=== PATIENT | male | born 1990 | race Caucasian/White ===

== ENCOUNTER 2019-03-21 15:13 | Emergency (ER) | payer MEDICAID, OTHER ==
--- NOTE | 2019-03-21 15:43 | EDM.PDOC ---
ED HPI GENERAL MEDICAL PROBLEM - General Chief Complaint: General Stated Complaint: LIVER AND KIDNEY ISSUES Time Seen by Provider: 03/21/19 15:34 Source of Information: Reports: Patient History Limitations: Reports: No Limitations - History of Present Illness INITIAL COMMENTS - FREE TEXT/NARRATIVE: HISTORY AND PHYSICAL: History of present illness: Patient is a 28-year-old male who presents to the emergency room with his mother with concerns of jaundice and dark colored urine. Patient states he has a chronic alcohol user, states he has had "a bad month" which she has been drinking heavily. He states over the past one week he has noticed that his sclera and skin have a yellow hue to them. He also noticed that his urine is more dark in color. He states he is concerned he may have some "liver or kidney problems" but is currently asymptomatic. States if it hadn't been for the jaundice, he would not have presented to the ED today. Patient reports he has not seen a primary care provider in approximately 4 years. He denies any previous health history or diagnoses. Patient denies any fever, chills, headache, change in vision, syncope or near syncope. Denies any chest pain, back pain, shortness of breath or cough. Denies any abdominal pain, nausea, vomiting, diarrhea, constipation or dysuria. Has not noted any blood in urine or stool. Patient has been eating and drinking appropriately. Review of systems: As per history of present illness and below otherwise all systems reviewed and negative. Past medical history: As per history of present illness and as reviewed below otherwise noncontributory. Surgical history: As per history of present illness and as reviewed below otherwise noncontributory. Social history: See social history for further information Family history: As per history of present illness and as reviewed below otherwise noncontributory. Physical exam: General: Well-developed and well-nourished 28-year-old male. Alert and oriented. Nontoxic appearing and in no acute distress. HEENT: Atraumatic, normocephalic, pupils equal and reactive bilaterally, negative for conjunctival pallor, scleral jaundice bilaterally, mucous membranes moist, TMs normal bilaterally, throat clear, neck supple, nontender, trachea midline. No drooling or trismus noted. No meningeal signs. No hot potato voice noted. Lungs: Clear to auscultation, breath sounds equal bilaterally, chest nontender. Heart: S1S2, regular rate and rhythm without overt murmur Abdomen: Soft, nondistended, nontender. Negative for masses or hepatosplenomegaly. Negative for costovertebral tenderness. Pelvis: Stable nontender. Genitourinary: Deferred. Rectal: Deferred. Skin: Intact, warm, dry. Jaundiced throughout. No lesions or rashes noted. Extremities: Atraumatic, moves all extremities per self without difficulty or deficits, negative for cords or calf pain. Neurovascular unremarkable. Neuro: Awake, alert, oriented. Cranial nerves II through XII unremarkable. Cerebellum unremarkable. Motor and sensory unremarkable throughout. Exam nonfocal. Notes: Patient has elevated Total bilirubin 19.8, Ammonia level 79, AST 110, ALT 43, Large Bili in urine. INR 1.79.CT of abdomen/pelvis shows abnormal appearance of the liver suggesting cirrhosis, with stigmata of portal venous hypertension including splenomegaly and numerous varices including paraesophageal varices. No ascites. There is an indeterminate intrahepatic lesion. Given the above findings, further characterization of this lesion with a nonemergent MRI is recommended. Cholelithiasis without CT evidence of acute cholecystitis. Dr Marrero was consulted on this patient, he would like him at a higher level of care. 1940: Dr Croft and Dr Gr at [facility] in [place] work consult did on this case and agreeable to admitting this patient for further evaluation and management. Patient and mother at bedside were informed of findings and the need for transfer. They are agreeable and offer no further questions or concerns 2000: Father is now here and would like the patient transferred to [facility]. They aware of our process being that we usually transfer to the closest facility for care/management. They do not want to go to [place]. Patient /father still would like to be transferred to [place]. Dr. Loza, hospitalist, is agreeable to accepting this patient. Patient will be transferred via ground EMS. Diagnostics: CBC, CMP, UA, amylase, lipase, CT abdomen and pelvis, ammonia level Therapeutics: IV fluids Impression: Acute Liver Failure Cholelithiasis Plan: Transfer to [facility] Definitive disposition and diagnosis as appropriate pending reevaluation and review of above. - Related Data Allergies Allergy/AdvReac Type Severity Reaction Status Date / Time Penicillins Allergy Hives Verified 11/28/14 08:32 Past Medical History - Past Health History Medical/Surgical History: Denies Medical/Surgical History Other Respiratory History: last november Genitourinary History: Reports: Other (See Below) Other Genitourinary History: hydrocele Other Neuro History: claudia diallo seizures diagnosed around age 5, on meds for 5 years Other Psychiatric History: adhd with seziures - Infectious Disease History Infectious Disease History: Reports: Chicken Pox - Past Surgical History Other HEENT Surgeries/Procedures: wisdom teeth removed Other Neurological Surgeries/Procedures: hydrocele repair at 4 months of age Social & Family History - Family History Cardiac: Reports: CAD Oncologic: Reports: Breast - Tobacco Use Smoking Status *Q: Current Every Day Smoker Years of Tobacco use: 9 Packs/Tins Daily: 0.5 - Caffeine Use Caffeine Use: Reports: Coffee, Energy Drinks - Alcohol Use Days Per Week of Alcohol Use: 5 Number of Drinks Per Day: 8 Total Drinks Per Week: 40 - Recreational Drug Use Recreational Drug Use: Yes Drug Use in Last 12 Months: Yes Recreational Drug Type: Reports: Marijuana/Hashish Recreational Drug Use Frequency: Not Used In Over 6 Months ED ROS GENERAL - Review of Systems Review Of Systems: ROS reveals no pertinent complaints other than HPI. ED EXAM, GENERAL - Physical Exam Exam: See Below (See dictation) Course - Vital Signs Last Recorded V/S: Last Vital Signs Temp 99.1 F 03/21/19 15:34 Pulse 96 03/21/19 19:13 Resp 18 03/21/19 19:13 BP 148/88 H 03/21/19 19:13 Pulse Ox 97 03/21/19 19:13 - Orders/Labs/Meds Orders: Active Orders 24 hr Category Date Time Status Abdomen Pelvis w Cont [CT] Stat Exams 03/21/19 15:48 Taken CULTURE URINE [RM] Stat Lab 03/21/19 16:05 Received HEPATITIS PANEL (4) [REF] Stat Lab 03/21/19 16:01 Received Sodium Chloride 0.9% [Normal Saline] 1,000 ml Med 03/21/19 17:21 Active IV STAT Medication Orders Sodium Chloride (Normal Saline) 1,000 mls @ 125 mls/hr IV STAT ONE Stop: 03/22/19 01:20 Last Admin: 03/21/19 18:05 Dose: 125 mls/hr Labs: Laboratory Tests 0503/21/19 03/21/19 Range/Units 15:35 15:41 15:59 WBC 4.08 (4.0-11.0) K/uL RBC 3.28 L (4.50-5.90) M/uL Hgb 11.7 L (13.0-17.0) g/dL Hct 33.0 L (38.0-50.0) % MCV 100.6 H (80.0-98.0) fL MCH 35.7 H (27.0-32.0) pg MCHC 35.5 (31.0-37.0) g/dL RDW Std Deviation 47.1 (28.0-62.0) fl RDW Coeff of Jena 13 (11.0-15.0) % Plt Count 40 L (150-400) K/uL MPV 11.00 (7.40-12.00) fL Neut % (Auto) 80.5 H (48.0-80.0) % Lymph % (Auto) 10.5 L (16.0-40.0) % [place] % (Auto) 8.8 (0.0-15.0) % Eos % (Auto) 0.0 (0.0-7.0) % Baso % (Auto) 0.2 (0.0-1.5) % Neut # (Auto) 3.3 (1.4-5.7) K/uL Lymph # (Auto) 0.4 L (0.6-2.4) K/uL [place] # (Auto) 0.4 (0.0-0.8) K/uL Eos # (Auto) 0.0 (0.0-0.7) K/uL Baso # (Auto) 0.0 (0.0-0.1) K/uL Nucleated RBC % 0.0 /100WBC Nucleated RBCs # 0 K/uL INR 1.79 Sodium 134 L (136-148) mmol/L Potassium 3.4 L (3.5-5.1) mmol/L Chloride 97 L (98-107) mmol/L Carbon Dioxide 22.7 (21.0-32.0) mmol/L BUN 5 L (7.0-18.0) mg/dL Creatinine 0.6 L (0.8-1.3) mg/dL Est Cr Clr Drug Dosing 203.45 mL/min Estimated GFR (MDRD) > 60.0 ml/min Glucose 125 H (74-106) mg/dL Calcium 9.0 (8.5-10.1) mg/dL Total Bilirubin 19.8 H (0.2-1.0) mg/dL AST 110 H (15-37) IU/L ALT 43 (14-63) IU/L Alkaline Phosphatase 129 H (46-116) U/L Ammonia (19-54) ug/dL Total Protein 9.0 H (6.4-8.2) g/dL Albumin 3.2 L (3.4-5.0) g/dL Globulin 5.8 H (2.6-4.0) g/dL Albumin/Globulin Ratio 0.6 L (0.9-1.6) Amylase (25-115) U/L Lipase (73-393) U/L Urine Color Urine Appearance Urine pH (5.0-8.0) Ur Specific Central (1.001-1.035) Urine Protein (NEGATIVE) mg/dL Urine Glucose (UA) (NEGATIVE) mg/dL Urine Ketones (NEGATIVE) mg/dL Urine Occult Blood (NEGATIVE) Urine Nitrite (NEGATIVE) Urine Bilirubin (NEGATIVE) Urine Ictotest Urine Urobilinogen (<2.0) EU/dL Ur Leukocyte Esterase (NEGATIVE) Urine RBC (0-2/HPF) Urine WBC (0-5/HPF) Ur Epithelial Cells (NONE-FEW) Urine Bacteria (NEGATIVE) Urinalysis Comment Ethyl Alcohol mg/dL 03/21/19 03/21/19 03/21/19 Range/Units 15:59 15:59 16:05 WBC (4.0-11.0) K/uL RBC (4.50-5.90) M/uL Hgb (13.0-17.0) g/dL Hct (38.0-50.0) % MCV (80.0-98.0) fL MCH (27.0-32.0) pg MCHC (31.0-37.0) g/dL RDW Std Deviation (28.0-62.0) fl RDW Coeff of Jena (11.0-15.0) % Plt Count (150-400) K/uL MPV (7.40-12.00) fL Neut % (Auto) (48.0-80.0) % Lymph % (Auto) (16.0-40.0) % [place] % (Auto) (0.0-15.0) % Eos % (Auto) (0.0-7.0) % Baso % (Auto) (0.0-1.5) % Neut # (Auto) (1.4-5.7) K/uL Lymph # (Auto) (0.6-2.4) K/uL [place] # (Auto) (0.0-0.8) K/uL Eos # (Auto) (0.0-0.7) K/uL Baso # (Auto) (0.0-0.1) K/uL Nucleated RBC % /100WBC Nucleated RBCs # K/uL INR Sodium (136-148) mmol/L Potassium (3.5-5.1) mmol/L Chloride (98-107) mmol/L Carbon Dioxide (21.0-32.0) mmol/L BUN (7.0-18.0) mg/dL Creatinine (0.8-1.3) mg/dL Est Cr Clr Drug Dosing mL/min Estimated GFR (MDRD) ml/min Glucose (74-106) mg/dL Calcium (8.5-10.1) mg/dL Total Bilirubin (0.2-1.0) mg/dL AST (15-37) IU/L ALT (14-63) IU/L Alkaline Phosphatase (46-116) U/L Ammonia 79 H (19-54) ug/dL Total Protein (6.4-8.2) g/dL Albumin (3.4-5.0) g/dL Globulin (2.6-4.0) g/dL Albumin/Globulin Ratio (0.9-1.6) Amylase 70 (25-115) U/L Lipase 305 (73-393) U/L Urine Color ORANGE Urine Appearance CLEAR Urine pH 7.0 (5.0-8.0) Ur Specific Central 1.010 (1.001-1.035) Urine Protein 100 H (NEGATIVE) mg/dL Urine Glucose (UA) 100 H (NEGATIVE) mg/dL Urine Ketones 15 H (NEGATIVE) mg/dL Urine Occult Blood SMALL H (NEGATIVE) Urine Nitrite POSITIVE H (NEGATIVE) Urine Bilirubin LARGE H (NEGATIVE) Urine Ictotest POSITIVE Urine Urobilinogen >=8.0 H (<2.0) EU/dL Ur Leukocyte Esterase TRACE H (NEGATIVE) Urine RBC 0-1 (0-2/HPF) Urine WBC 0-1 (0-5/HPF) Ur Epithelial Cells NOT SEEN (NONE-FEW) Urine Bacteria FEW (NEGATIVE) Urinalysis Comment Not Reportable Ethyl Alcohol <3 mg/dL Meds: Medications Generic Name Dose Route Start Last Admin Trade Name Freq PRN Reason Stop Dose Admin Sodium Chloride 1,000 mls @ 125 mls/hr 03/21/19 17:21 03/21/19 18:05 Normal Saline IV 03/22/19 01:20 125 mls/hr STAT ONE Administration Discontinued Medications Generic Name Dose Route Start Last Admin Trade Name Freq PRN Reason Stop Dose Admin Sodium Chloride 1,000 mls @ 999 mls/hr 03/21/19 15:49 03/21/19 16:04 Normal Saline IV 03/21/19 16:49 999 mls/hr STAT ONE Administration Iopamidol 100 ml 03/21/19 17:20 03/21/19 17:33 Isovue Multipack-370 (76%) IVPUSH 03/21/19 17:21 100 ml ONETIME STA Administration Departure - Departure Time of Disposition: 20:13 Disposition: DC/Tfer to Acute Hospital 02 Clinical Impression: Acute liver failure Qualifiers: Hepatic coma status: without hepatic coma Qualified Code(s): K72.00 - Acute and subacute hepatic failure without coma Cholelithiasis Qualifiers: Cholelithiasis location: gallbladder Cholecystitis presence: without cholecystitis Biliary obstruction: without biliary obstruction Qualified Code(s) : K80.20 - Calculus of gallbladder without cholecystitis without obstruction - Discharge Information Referrals: Jake James MD [Primary Care Provider] - Forms: ED Department Discharge - My Orders Last 24 Hours: My Active Orders 03/21/19 15:48 Abdomen Pelvis w Cont [CT] Stat 03/21/19 16:01 HEPATITIS PANEL (4) [REF] Stat 03/21/19 16:05 CULTURE URINE [RM] Stat 03/21/19 17:21 Sodium Chloride 0.9% [Normal Saline] 1,000 ml IV STAT - Assessment/Plan Last 24 Hours: My Active Orders 03/21/19 15:48 Abdomen Pelvis w Cont [CT] Stat 03/21/19 16:01 HEPATITIS PANEL (4) [REF] Stat 03/21/19 16:05 CULTURE URINE [RM] Stat 03/21/19 17:21 Sodium Chloride 0.9% [Normal Saline] 1,000 ml IV STAT
[2019-03-21] MEDS ORDERED: Sodium Chloride 0.9% 1,000 ML IV ONE ×2 (15:49→17:21)
[2019-03-21 17:09] LABS: CHLORIDE,CL 97 mmol/L (98-107); SODIUM,NA 134 mmol/L (136-148)
[2019-03-21] MEDS ORDERED: Iopamidol 755 MG/ML 500 ML Multipack Bottle IVPUSH STA (17:20)
[2019-03-21] MEDS: LORazepam 2 MG/ML SDV IVPUSH ONE ×2 (20:55→21:59)
[2019-03-21] MEDS ORDERED: LORazepam 2 MG/ML SDV IVPUSH ONE ×2 (21:02→21:04)
[2019-03-21 21:10] VITALS: BP 144/95
--- NOTE | 2019-03-22 11:22 | CT ---
EXAM DATE: 03/21/19 PATIENT'S AGE: 28 Patient: MAGGY ARTEAGA Facility: [facility] Site . Site : [id number] Study: CT-Abdomen/Pelvis [id number]/1/2019 5:40:39 PM Ordering Physician: Doctor Zhang Final Report: INDICATION: Jaundice. TECHNIQUE: Contiguous axial images were acquired through the abdomen and pelvis after the intravenous administration of contrast. Sagittal and coronal reconstructions. COMPARISON: None. FINDINGS: Lower chest: Normal heart size. No pericardial effusion. Minimal presumed post infectious/postinflammatory scarring is seen in the right lung base. No pleural effusion. Paraesophageal varices are noted. Abdomen and pelvis: The liver is normal in size. There is a subtle nodular surface contour suggesting cirrhosis. In the right lobe of the liver anteriorly and superiorly, adjacent to the fundus of the gallbladder on axial image 40, there appears to be a lesion measuring approximate 2.8 cm. The main portal vein is patent and measures up to 1.3 cm in diameter. Numerous small to moderate size calcified stones are seen within the gallbladder, without significant gallbladder wall thickening or pericholecystic edema to suggest acute cholecystitis. No intrahepatic or extrahepatic bile duct dilatation. No appreciable pancreatic mass or inflammatory changes. The spleen is enlarged, measuring approximately 20 cm in craniocaudal dimension. No adrenal gland abnormality. The kidneys appear unremarkable. Abdominal aorta is normal in caliber. There is abnormal dilatation of the infrahepatic portion of the IVC. Extensive intra-abdominal collaterals/varices are noted. There is no ascites. No free air. No significantly dilated bowel to suggest obstruction. No lymphadenopathy is identified. Urinary bladder appears unremarkable. Prostate size is normal. Bones: No acute abnormality. IMPRESSION: 1. Abnormal appearance of the liver suggesting cirrhosis, with stigmata of portal venous hypertension including splenomegaly and numerous varices including paraesophageal varices. No ascites. 2. There is an indeterminate intrahepatic lesion. Given the above findings, further characterization of this lesion with a nonemergent MRI is recommended. 3. Cholelithiasis without CT evidence of acute cholecystitis. 4. Other findings as noted. Dictated by Juan F Flower MD @ 03/21/2019 6:43:20 PM Please note that all CT scans at this facility use dose modulation, iterative reconstruction, and/or weight-based dosing when appropriate to reduce radiation dose to as low as reasonably achievable. Dictated by: Juan F Flower MD @ 03/21/2019 18:43:56 Signed by: Juan F Flower MD @03/21/2019 6:43:56 PM (Electronic Signature) Report Signed by Proxy. [facility]
== END 2019-03-21 21:10 ==
LOC: MW.ED 15:13
DX: K72.00 Acute and subacute hepatic failure without coma (principal); K80.20 Calculus of gallbladder without cholecystitis without obstruction; F17.210 Nicotine dependence, cigarettes, uncomplicated; Z88.0 Allergy status to penicillin
CPT/HCPCS: 36415; 74177; 80053; 80074; 81001; 82140; 82150; 83690; 85025; 85610; 87086; 96361; 96374; 99285; G0480; J2060; J7040; Q9967